=== PATIENT | male | born 1975 | race African-American/Black ===

== ENCOUNTER → 2020-08-22 | Outpatient (CLI) | payer OTHER ==
[~2020-08-22] MED LIST: ASA81BEC PO; COZAAR 25 MG TA25 M1 PO; DAPSONE25 MG PO; METFORMIN HCL500 M3 PO; NORCO5 PO; NORVASC10 MG PO; PERCOCET 5-3251 EACH PO; TYLENOL EXTRA500 MG PO
== END ==
LOC: M.LAB 07:26
PROVIDERS: ATTEND Surgery
DX: Z01.812 Encounter for preprocedural laboratory examination (principal); Z20.822 Contact with and (suspected) exposure to COVID-19

== ENCOUNTER → 2020-08-24 | Day surgery (SDC) | payer OTHER ==
--- NOTE | ~2020-08-24 | OP ---
[facility] [address] [place] [address] OPERATIVE REPORT Name: VERENICE MILLER JR Room: [facility]#: [id number] Admission: 08/24/20 Attend Phys: Mando Gardner Discharge: Date of : 77 Report #: [id number] THIS REPORT FOR: cc: Franck Kaye,Mando Cortes MD DATE OF SERVICE: 08/24/2020 PREOPERATIVE DIAGNOSIS: Hidradenitis suppurativa of the bilateral buttocks. POSTOPERATIVE DIAGNOSIS: Hidradenitis suppurativa of the bilateral buttocks. OPERATION: Excision of hidradenitis suppurativa of the bilateral buttocks. SURGEON: Mando Gardner MD ANESTHESIA: General. ESTIMATED BLOOD LOSS: Minimal. SPECIMEN: Hidradenitis suppurativa. DESCRIPTION OF PROCEDURE: After informed consent was obtained, the patient was brought to the operating room and placed supine. SCDs were placed and working, preoperative antibiotics were administered, general anesthesia was induced. The patient was then placed in the right lateral decubitus position with an axillary roll and all bony prominences and his genitals protected. The area was then prepped and draped in the usual sterile fashion. He had 3 spots on his left buttock with areas of which were draining pus. I used the cautery to make approximately 3 x 3 cm circles around the draining areas. Cautery dissection was made down to healthy subcutaneous fat. The specimen was then excised. Again, there were three areas on the left side. There was one area on the right side and again this was grasped and cautery was used to dissect around it, giving a margin of approximately 1.5 cm on each side. The areas were then copiously irrigated with normal saline. They were packed with sterile gauze. Sterile dressings were applied. COMPLICATIONS: None. DISPOSITION: The patient was taken to recovery in satisfactory condition. By: [id number] Gardner MD /dixie
[2020-08-24 11:47] LABS: HEMATOCRIT 36.5 % (42.0-52.0); HEMOGLOBIN 11.3 gm/dL (14.0-18.0); MCH 23.7 pg (26.0-34.0); MCV 76.5 fL (80.0-100.0); MPV 7.9 fl. (7.2-11.1); RBC 4.76 mil/uL (4.50-6.00); RDW-CV 21.3 % (10.5-14.5); WBC 14.3 thou/uL (4.0-11.0)
[2020-08-24 11:59] LABS: CALCIUM 9.3 mg/dL (8.5-10.1); POTASSIUM 3.9 mmol/L (3.5-5.1)
--- NOTE | 2020-08-24 13:59 | EKG ---
[place] [address] ELECTROCARDIOGRAM REPORT Name: VERENICE MILLER JR Room: [facility]#: [id number] Admission: 08/24/20 Attend Phys: Mando Dupree Discharge: Date of : 77 Date of Service: 08/24/20 1136 Report #: [id number] THIS REPORT FOR: //name// [facility] Test Date: 2020-08-24 Test Time: 11:36:31 Pat Name: VERENICE MILLER Department: Room: Gender: Training And Development Assistant: : 1975 Requested By: Mando Gardner Order Number: [id number] Reading MD: Theodore Duncan Measurements Intervals [place] Rate: 99 P: 68 NE: 142 QRS: -15 QRSD: 93 T: 57 QT: 340 QTc: 437 Interpretive Statements Sinus rhythm Borderline left axis deviation No previous ECG available for comparison Electronically Signed On 08-24-2020 13:59:04 CDT by Theodore Duncan [email or web address] <ELECTRONICALLY SIGNED> By: Theodore Duncan MD, [facility] 08/24/20 1359 1136 1136 Theodore Duncan MD, FAC /EPI
== END | disposition home or self-care (01) ==
LOC: M.SUR
PROVIDERS: ATTEND Surgery
DX: L73.2 Hidradenitis suppurativa (principal); I10 Essential (primary) hypertension; F41.9 Anxiety disorder, unspecified; F17.210 Nicotine dependence, cigarettes, uncomplicated; Z98.890 Other specified postprocedural states; Z79.899 Other long term (current) drug therapy

== ENCOUNTER 2020-08-27 12:22 | Emergency (ER) | payer OTHER ==
[~2020-08-27] VITALS: Ht 190.5 cm; Wt 95.3 kg
[2020-08-27 13:00] VITALS: BP 131/89
== END 2020-08-27 13:01 | disposition home or self-care (01) ==
LOC: M.ERS 12:22
DX: L76.21 Postprocedural hemorrhage of skin and subcutaneous tissue following a dermatologic procedure (principal); Z48.01 Encounter for change or removal of surgical wound dressing; Z98.890 Other specified postprocedural states; Z79.899 Other long term (current) drug therapy; Z88.8 Allergy status to other drugs, medicaments and biological substances